=== PATIENT | male | born 1970 | race Caucasian/White ===

== ENCOUNTER → 2018-09-26 | Outpatient (CLI) | payer OTHER ==
--- NOTE | 2018-09-26 13:21 | ECHOS ---
STRESS ECHOCARDIOGRAM DATE OF SERVICE: 09/26/2018 INDICATIONS: Abnormal EKG MEDICATIONS: Lisinopril, Crestor. BASELINE HEART RATE: 74 BASELINE BLOOD PRESSURE: 115/56 MAXIMUM HEART RATE: 161 MAXIMUM BLOOD PRESSURE: 162/63 85% MPHR: 147 100% MPHR: 173 METS: 11.7 MAXIMUM STAGE REACHED: IV TOTAL EXERCISE TIME: 10 minutes CLINICAL INFORMATION: Baseline rhythm sinus mechanism, rate 74, normal axis and intervals, normal electrocardiogram. Baseline blood pressure 115/56 mmHg. The patient exercised on Timothy protocol for 10 minutes reaching peak rate of 161 beats per minute which is equal to 93% maximum predicted heart rate. Peak blood pressure 162/63 mmHg. Test was terminated secondary to fatigue. There was no chest pain. Electrocardiograph monitoring revealed no evidence of diagnostic ischemic ST deviation. Baseline echocardiogram revealed normal wall thickness and motion. At peak exercise, there was normal wall motion augmentation with no hypokinesis or dyskinesis. CONCLUSION: 1. Good exercise tolerance with normal electrocardiograph response to exercise. 2. Normal stress echocardiogram with no evidence of stress induced ischemia. MMODL / IJN: [id number] /
== END | disposition home or self-care (01) ==
LOC: RADNMMAIN 08:58
PROVIDERS: ATTEND Family Medicine
DX: R94.31 Abnormal electrocardiogram [ECG] [EKG] (principal)
CPT/HCPCS: 93351

== ENCOUNTER → 2023-02-14 | Outpatient (CLI) | payer BC ==
--- NOTE | 2023-02-14 14:48 | US ---
EXAMINATION TYPE: US liver DATE OF EXAM: 02/14/2023 COMPARISON: NONE CLINICAL INDICATION: Male, 53 years old with history of K76.0 FATTY (CHANGE OF) LIVER, NOT ELSEWHERE CLASSIFIED; Fatty liver. TECHNIQUE: Multiple sonographic images of the right upper quadrant are obtained. FINDINGS: EXAM MEASUREMENTS: Liver Length: 15.1 cm Gallbladder Wall: 0.14 cm CBD: Obscured Right Kidney: 11.2 x 6.6 x 6.8 cm DOCUMENT IMAGE TECHNICIAN NOTES: Limited due to overlying bowel gas. Pancreas: Portions seen appear hyperechoic. Liver: Appears very coarse with increased echogenicity. Hypoechoic area seen adjacent to the gallbladder: 1.7 x 2.0 x 0.8 cm. Findings compatible with focal fatty sparing. Gallbladder: Anechoic. Measures 3.6 cm in width. Evidence for sonographic Castillo's sign: No CBD: Obscured Right Kidney: No hydronephrosis or masses seen IMPRESSION: 1. Moderate to severe hepatic steatosis. Correlate with LFTs, lipid profile, and patient risk factor s. 2. No gallstones. Bile duct is obscured and not adequately assessed on this study.
== END | disposition home or self-care (01) ==
LOC: RADUSWWP 08:49
PROVIDERS: ATTEND Internal Medicine
DX: K76.0 Fatty (change of) liver, not elsewhere classified (principal)
CPT/HCPCS: 76705

== ENCOUNTER → 2024-02-25 | Outpatient (CLI) | payer BC ==
--- NOTE | 2024-02-25 13:04 | CA ---
Exercise Nuclear Stress Test Report Name: Ravi Long Exam Date: 02/25/2024 10:37 Exam Location: [place] Stress Ht (in): 74 Wt (lb): 200 BSA: 2.17 Ordering Phys: Kalyan Forrest MD Referring Phys: Kalyan Forrest MD Technologist: Shankar Cornejo Age: 54 Gender: M : 1970 Procedure CPT: Indications: R93.[address] heart score ICD-10 Codes: Patient History: Medications: LISINOPRIL, METFORMIN, ROSUVASTATIN, NIACIN, EZETIMIBE, FAXIGA, CEIRIZINE Meds past 24 hrs: Pretest Chest Pain: NONE STRESS TEST Timothy Protocol Exercise Duration (min:sec): 10:[address] Depressions (mm): 0 Angina Score: 0 Sexton Score: 10.2 Resting HR (bpm): 87 Peak HR (bpm): 164 Resting BP (mmHg): 139 / 87 Peak BP (mmHg): 241 / 63 MPHR: 167 Target HR: 142 % MPHR: 98 METS: 12.1 Total Dose: Peak Dose: Atropine: Double Product: 19743 BP Response: Stress Termination: Reached target heart rate Stress Symptoms: NO SYMPTOMS Stress Summary: The patient's target heart rate was achieved ECG ANALYSIS Resting ECG: Sinus rhythm. Normal conduction. No arrhythmias. Normal repolarization. Stress ECG: No ECG evidence of ischemia with exercise. CONCLUSIONS Patient falls into low-risk group (DTS >= +5). This associates the patient with an annual CV mortality <= 0.5%. 1. Good exercise tolerance 2. Normal electrocardiographic response exercise with no evidence of exercise-induced ischemia 3. Nuclear images will be reported separately Dr. Clayton Villeda MD (Electronically Signed) Final Date: 25 Feb 2024 13:04
--- NOTE | 2024-02-25 13:54 | NM ---
EXAMINATION TYPE: NM stress cardiolite complete DATE OF EXAM: 02/25/2024 COMPARISON: NONE CLINICAL INDICATION: Male, 54 years old with history of R93.[address]; TECHNIQUE: After the intravenous administration of 9.8 mCi Tc 99m Sestamibi - Rest images obtained 4 5 minutes post injection. The patient exercised using a HUONG protocol and 1 minute prior to peak e xercise was injected with 24.7 mCi Tc 99m Sestamibi - Stress images obtained 10 minutes post injectio n. FINDINGS: Targeted heart rate was achieved during performance of the study. Review of stress and rest SPECT octaviano ges demonstrates no distinct perfusion abnormality. Gated analysis shows normal wall motion with an estimated left ventricular ejection fraction of 60 %. IMPRESSION: No scintigraphic evidence for reversible ischemia
== END | disposition home or self-care (01) ==
LOC: RADNMMAIN 07:49
PROVIDERS: ATTEND Internal Medicine
DX: R93.1 Abnormal findings on diagnostic imaging of heart and coronary circulation (principal)
CPT/HCPCS: 93017; 78452; A9500

== ENCOUNTER → 2025-01-23 | Outpatient (CLI) | payer BC ==
--- NOTE | 2025-01-24 17:12 | MR ---
EXAMINATION TYPE: MR liver wo/w con DATE OF EXAM: 01/23/2025 7:40 PM INDICATION: Patient age:Male; 55 years old; Reason for study: K76.0 FATTY (CHANGE OF) LIVER, NOT ELSEWHERE CLASS; [facility]. COMPARISON: Ultrasound liver 02/14/2023 TECHNIQUE: Multiplanar multi-sequence imaging was performed without and with IV contrast. The patie nt was given 10 ccs of Gadobutrol intravenously and dynamic imaging was performed. Post IV contrast s ubtraction images were also submitted for review. FINDINGS: LOWER CHEST: No gross irregularity. ABDOMEN Liver: Noncirrhotic morphology. No significant drop out of signal on out of phase imaging to suggest hepatic steatosis. Posterior right hepatic lobe segment 7 T2 hyperintense 0.8 cm lesion. This demonst rates peripheral nodular discontinuous enhancement with centripetal fill-in. Most consistent with a b enign hemangioma. Gallbladder and Bile ducts: Unremarkable. Pancreas: Unremarkable. Spleen: Unremarkable. Adrenal glands: Unremarkable. Kidneys: No hydronephrosis. Anterior left renal upper pole exophytic T2 hyperintense 1.2 cm nonenhanc ing simple cyst. Stomach and Bowel: No evidence for bowel obstruction. Scattered colonic diverticulosis without eviden ce for acute diverticulitis. Peritoneum: No evidence of pneumoperitoneum, free fluid, or adenopathy. Vasculature: Unremarkable. No aortic aneurysm. Abdominal wall: Unremarkable. Musculoskeletal: The osseous structures appear intact. IMPRESSION: 1. No MRI evidence for acute abdominal process. 2. Subcentimeter right hepatic lobe benign hemangioma. 3. No MR evidence for hepatic steatosis. 4. Simple left renal cyst. 5. Colonic diverticulosis without evidence for acute diverticulitis. [facility], , 01/24/2025 5:10 PM
== END | disposition home or self-care (01) ==
LOC: RADMRIMAIN 18:44
PROVIDERS: ATTEND Internal Medicine
DX: K76.0 Fatty (change of) liver, not elsewhere classified (principal); D18.03 Hemangioma of intra-abdominal structures; N28.1 Cyst of kidney, acquired; K57.30 Diverticulosis of large intestine without perforation or abscess without bleeding
CPT/HCPCS: 74183; A9585

== ENCOUNTER → 2025-02-13 | Outpatient (CLI) | payer BC ==
--- NOTE | 2025-02-13 15:44 | CA ---
Transthoracic Echo Report Name: Ravi Long Age: 55 Gender: M : 1970 Exam Date: 02/13/2025 11:35 Exam Location: [place] [facility] Ht (in): 74 Wt (lb): 220 Ordering Physician: Kalyan Forrest MD Attending/Referring Phys: Jet Dyeing Machine Operator Davina Brenner RDCS Procedure CPT: Indications: I34.0 Nonrheumatic mitral valve regurg Cardiac Hx: Technical Quality: Good Contrast 1: Total Dose (mL): Contrast 2: Total Dose (mL): MEASUREMENTS (Male / Female) Normal Values 2D ECHO LV Diastolic Volume MOD BP 72.6 cm??? 67 - 155 / 56 - 104 cm??? LV Systolic Volume MOD BP 31.0 cm??? 22 - 58 / 19 - 49 cm??? LV Ejection Fraction MOD BP 57.3 % >= 55 % LV Cardiac Index MOD BP 1122.2 cm???/min???m??? LV Diastolic Volume MOD 4C 66.3 cm??? LV Systolic Volume MOD 4C 24.6 cm??? LV Ejection Fraction MOD 4C 62.9 % LV Cardiac Index MOD 4C 1125.0 cm???/min???m??? LV Diastolic Length 4C 7.7 cm LV Systolic Length 4C 5.8 cm LV Diastolic Volume MOD 2C 79.0 cm??? LV Systolic Volume MOD 2C 33.9 cm??? LV Ejection Fraction MOD 2C 57.2 % LV Cardiac Index MOD 2C 1218.4 cm???/min???m??? LV Diastolic Length 2C 7.8 cm LV Systolic Length 2C 6.7 cm M-MODE Aortic Root Diameter MM 3.5 cm LA Systolic Diameter MM 3.7 cm LA Ao Ratio MM 1.1 AV Cusp Separation MM 2.0 cm DOPPLER Mitral E Point Velocity 63.3 cm/s Mitral A Point Velocity 68.4 cm/s Mitral E to A Ratio 0.9 MV Deceleration Time 257.2 ms MV E' Velocity 7.0 cm/s Mitral E to MV E' Ratio 9.1 TR Peak Velocity 192.1 cm/s TR Peak Gradient 14.8 mmHg FINDINGS Left Ventricle Left ventricular ejection fraction is estimated at 55-60%. Normal Left ventricular size, wall thickness, systolic function with no obvious regional wall motion abnormalities. Normal Left ventricular diastolic filling pattern. Right Ventricle Normal right ventricular size and function. Right Atrium Normal right atrial size. Left Atrium Normal left atrial size. Mitral Valve Structurally normal mitral valve. Mild mitral regurgitation. No mitral stenosis. Aortic Valve Trileaflet aortic valve. No aortic valve stenosis or regurgitation. Tricuspid Valve Structurally normal tricuspid valve. Trace to mild tricuspid regurgitation. No tricuspid stenosis. Pulmonic Valve Structurally normal pulmonic valve. Trace pulmonic regurgitation. No pulmonic stenosis. Pericardium No pericardial or pleural effusion. Aorta Normal size aortic root and proximal ascending aorta. CONCLUSIONS Left ventricular ejection fraction 55 to 60% Mild mitral regurgitation Trace to mild tricuspid regurgitation No pericardial effusion Previewed by: Dr. Tony Diaz DO (Electronically Signed) Final Date: 13 Feb 2025 15:44
== END | disposition home or self-care (01) ==
LOC: RADECHMAIN 11:26
PROVIDERS: ATTEND Internal Medicine
DX: I08.1 Rheumatic disorders of both mitral and tricuspid valves (principal)
CPT/HCPCS: 93306